=== PATIENT | female | born 1995 | race Caucasian/White ===

== ENCOUNTER 2020-04-16 16:35 | Emergency (ER) | payer SELFPAY ==
[2020-04-16 17:56] LABS: #Eosinphils 0.1 thou/uL (0.0-0.7); #Lymphocytes 2.1 thou/uL (1.20-3.40); #Monocytes 0.4 thou/uL (0.11-0.59); #Neutrophils 3.2 thou/uL (1.40-6.50); %Basophils 0.7 % (0.0-1.0); %Eosinophils 1.8 % (0.0-10.0); %Lymphocytes 35.8 % (21.0-51.0); %Monocytes 6.6 % (0.0-10.0); %Neutrophils 55.1 % (42.0-75.0); Hemoglobin 12.7 g/dL (12.0-16.0); Mean Corpuscular HGB CONC 32.6 g/dL (32.0-36.0); Mean Corpuscular Hemoglobin 27.3 pg (27.0-31.0); Mean Corpuscular Volume 83.8 fL (78.0-98.0); Mean Platelet Volume 8.2 fL (7.4-10.4); Platelet Count 241 thou/uL (130-400); RBC Distribution Width 12.1 % (11.5-14.5); Red Blood Cell (RBC) Count 4.67 mill/uL (4.20-5.40); White Blood Cell (WBC) Count 5.9 thou/uL (4.8-10.8)
[2020-04-16 18:10] LABS: ALT (SGPT) 12 U/L (8-55); AST (SGOT) 13 U/L (5-34); Albumin 4.1 g/dL (3.5-5.0); Alkaline Phosphatase 62 U/L (40-110); Anion Gap 11 mmol/L (10-20); BUN (Urea Nitrogen) 9 mg/dL (7.0-18.7); Bilirubin, Total 0.3 mg/dL (0.2-1.2); Calc. Creatinine Clearance 0 mL/min (70-130); Calcium 8.6 mg/dL (7.8-10.44); Carbon Dioxide 21 mmol/L (22-29); Chloride 108 mmol/L (98-107); Estimated GFR-MDRD Greater than 90; Globulin 2.9 g/dL (2.4-3.5); Glucose 102 mg/dL (70-105); Potassium 3.4 mmol/L (3.5-5.1); Sodium 137 mmol/L (136-145)
--- NOTE | 2020-04-16 20:39 | ULT ---
EXAM: PELVIC ULTRASOUND: 04/16/20 HISTORY: Positive test. Follow-up HCG. COMPARISON: 04/07/20. TECHNIQUE: Transabdominal and endovaginal imaging of the pelvis is performed. Ovaries are interrogated with hawk scale, color flow, Doppler imaging with spectral waveform analysis. FINDINGS: The uterus is identified, without myometrial mass. Uterus measures 7.7 x 4.3 x 5.2 cm. Within the endometrium, there is a gestational sac, yolk sac and pole. heart tones are no t appreciated. There does appear to be some subchorionic hemorrhage. Gratton-rump length is 0.54 cm cor responding to a gestational age of 5 weeks, 2 days. Left ovary has a normal echotexture, measuring 1.7 x 2.4 x 2.8 cm. There is a 3.0 x 3.3 x 3.9 cm anechoic focus in the right adnexa likely representing a right ovarian cyst. Overall the right ovary measures 4.0 x 4.4 x 4.9 cm. There is no free fluid. OVARIAN DOPPLER: Vascular flow to left and right ovary. IMPRESSION: 1. There is a right ovarian cyst, unchanged. 2. Interval evidence of a gestational sac, yolk sac, and pole. Gestational age by crown-r ump length is 5 weeks, 2 days. 3. heart tones not appreciated, likely due to early gestation age. Continued surveillance with follow-up ultrasound and serial beta HCGs are recommended. POS: [facility]PP
== END 2020-04-16 20:29 | disposition home or self-care (01) ==
LOC: ERS 16:35
DX: O20.0 Threatened abortion (principal); Z3A.01 Less than 8 weeks gestation of pregnancy
CPT/HCPCS: 36415; 76856; 80053; 84702; 85025; 86900; 86901